=== PATIENT | male | born 1980 | race Two or more races ===

== ENCOUNTER 2021-03-03 17:56 | Emergency (ER) | payer BC ==
--- NOTE | 2021-03-03 18:12 | NUR ---
CALLED IN ED WAITING ROOM. NO RESPONSE.
--- NOTE | 2021-03-03 18:38 | NUR ---
PT LEFT WITHOUT BEING TRIAGE
== END 2021-03-03 19:01 | disposition left against medical advice (07) ==
LOC: ER 18:20
DX: Z53.21 Procedure and treatment not carried out due to patient leaving prior to being seen by health care provider (principal)

== ENCOUNTER 2024-01-30 10:01 | Emergency (ER) | payer SELFPAY ==
[~2024-01-30] VITALS: Ht 175.3 cm; Wt 81.6 kg
[2024-01-30 10:05] VITALS: BP 104/79; TEMP 98.3
[2024-01-30 10:25] VITALS: O2SAT 99
== END 2024-01-30 10:25 | disposition home or self-care (01) ==
LOC: ER 10:01
DX: S30.0XXA Contusion of lower back and pelvis, initial encounter (principal); Z13.9 Encounter for screening, unspecified; V09.9XXA Pedestrian injured in unspecified transport accident, initial encounter; Y93.89 Activity, other specified; Y92.89 Other specified places as the place of occurrence of the external cause; Y99.8 Other external cause status